=== PATIENT | female | born 1980 | race Two or more races ===

== ENCOUNTER 2018-01-09 16:10 | Inpatient (IN) | payer OTHER ==
[~2018-01-09] VITALS: Ht 157.5 cm; Wt 3.2 kg
[~2018-01-09 16:10] MED LIST: ATARAX25 MG PO; LUTERA1 TAB; MEDROLPACK PO; ZYRTEC10 M3 PO
[2018-01-15] MEDS ORDERED: FE C PLUS TABL1 EACH PO (13:58)
[2018-01-15] MEDS ORDERED: PRENATAL 19 TA1 EACH PO (13:58)
[2018-01-19] MEDS ORDERED: PERCOCET 5-3251 EACH PO (11:00)
[2018-01-19] MEDS ORDERED: SURFAK240 M1 PO (11:00)
== END 2018-01-19 11:17 | disposition home or self-care (01) | DRG 766 ==
LOC: OB/GYN 01-14 15:15 → LDR 01-15 13:45 → O/R 01-16 20:08 → OB/GYN 01-16 22:02
PROVIDERS: Obstetrics & Gynecology
PROC: 3E0P7VZ Introduction of Hormone into Female Reproductive, Via Natural or Artificial Opening (ICD-10-PCS; 2018-01-16)
PROC: 4A1HXCZ Monitoring of Products of Conception, Cardiac Rate, External Approach (ICD-10-PCS; 2018-01-16)
PROC: 10D00Z1 Extraction of Products of Conception, Low, Open Approach (ICD-10-PCS; principal; 2018-01-16 19:00)
DX: O61.0 Failed medical induction of labor (principal); Z3A.40 40 weeks gestation of pregnancy; Z37.0 Single live birth; O09.513 Supervision of elderly primigravida, third trimester